=== PATIENT | female | born 1990 | race Asian ===

== ENCOUNTER 2021-12-05 10:13 | Emergency (ER) | payer BC ==
[~2021-12-05] VITALS: Ht 165.1 cm; Wt 54.4 kg
[2021-12-05 10:15] VITALS: BP_SYST 120
[2021-12-05] MEDS ORDERED: KETOROLAC TROMETHAMINE 30 MG VIAL IVP ONE (12:00)
[2021-12-05] MEDS ORDERED: NACL 0.9% 1,000 ML IV ONE (12:00)
[2021-12-05 12:19] LABS: BASOPHILS # (AUTO) 0.1 K/uL (0.0-0.2); BASOPHILS % (AUTO) 0.7 % (0.0-2.0); EOSINOPHILS % (AUTO) 0.3 % (0.0-4.0); HEMATOCRIT 35.9 % (36-48); HEMOGLOBIN 11.8 g/dL (12.0-16.0); LYMPHOCYTES # (AUTO) 0.7 K/uL (1.0-5.5); LYMPHOCYTES % (AUTO) 6.3 % (20.5-51.5); MEAN CORPUSCULAR HEMOGLOBIN 27 pg (27-31); MEAN CORPUSCULAR HGB CONC 33 % (32-36); MEAN CORPUSCULAR VOLUME 83 fL (79.0-98.0); MONOCYTES # (AUTO) 0.8 K/uL (0.0-1.0); MONOCYTES % (AUTO) 6.8 % (1.7-9.3); NEUTROPHILS # (AUTO) 9.9 K/uL (1.8-7.7); NEUTROPHILS % (AUTO) 85.9 % (40.0-70.0); PLATELET COUNT (AUTO) 215 K/uL (130-430); RED BLOOD CELL COUNT(AUTO) 4.34 MIL/uL (4.2-6.2); RED CELL DISTRIBUTION WIDTH 15.1 % (9.0-15.0); WHITE BLOOD COUNT (AUTO) 11.5 K/uL (4.8-10.8)
[2021-12-05 12:22] LABS: CALCIUM 7.7 mg/dL (8.4-11.0); CREATININE 0.67 mg/dL (0.55-1.30); POTASSIUM 3.7 mmol/L (3.5-5.1)
[2021-12-05 12:27] LABS: ALBUMIN 3.5 g/dL (3.4-4.8); TOTAL BILIRUBIN 0.3 mg/dL (0.0-1.0)
[2021-12-05 13:22] VITALS: BP_SYST 91
== END 2021-12-05 13:22 | disposition home or self-care (01) ==
LOC: SED 10:13
DX: R55 Syncope and collapse (principal)
CPT/HCPCS: 36415; 80053; 81025; 85025; 93005; 96361; 96374; 99284; J1885; J7030